=== PATIENT | male | born 1960 | race Caucasian/White ===

== ENCOUNTER 2021-02-19 17:00 | Emergency (ER) | payer OTHER, MEDICAID ==
[~2021-02-19] VITALS: Ht 180.3 cm; Wt 77.1 kg
[~2021-02-19 17:00] MED LIST: SEE LIST
[2021-02-19 17:03] VITALS: BP 149/83
== END 2021-02-19 19:45 | disposition home or self-care (01) ==
LOC: MED 17:00
DX: T17.928A Food in respiratory tract, part unspecified causing other injury, initial encounter (principal); E03.9 Hypothyroidism, unspecified; E78.5 Hyperlipidemia, unspecified; Z88.1 Allergy status to other antibiotic agents; Z98.890 Other specified postprocedural states; X58.XXXA Exposure to other specified factors, initial encounter; Y93.89 Activity, other specified; Y92.89 Other specified places as the place of occurrence of the external cause; Y99.8 Other external cause status
CPT/HCPCS: 71045; 99283